=== PATIENT | male | born 1985 | race Caucasian/White ===

== ENCOUNTER 2016-11-01 20:10 | Emergency (ER) | payer SELFPAY ==
[2016-11-01 20:31] VITALS: BP 121/75; PULSE 99; RESP 20; TEMP 98.1; O2SAT 95
[2016-11-01] MEDS ORDERED: Bacitracin 500 Units/gm Oint Foilpak UD TOP ONE (20:34)
[2016-11-01] MEDS ORDERED: Lidocaine 1% Inj (20ml) INFIL ONE (20:35)
[2016-11-01] MEDS ORDERED: Bacitracin 500 Units/gm Oint Foilpak UD ONE (20:44)
[2016-11-01] MEDS ORDERED: Lidocaine 1% Inj (20ml) ONE (20:45)
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
== END 2016-11-01 21:12 | disposition home or self-care (01) ==
LOC: C.ER 20:10
DX: S61.210A Laceration without foreign body of right index finger without damage to nail, initial encounter (principal); S61.411A Laceration without foreign body of right hand, initial encounter; V23.4XXA Motorcycle driver injured in collision with car, pick-up truck or van in traffic accident, initial encounter; Y92.488 Other paved roadways as the place of occurrence of the external cause; Z23 Encounter for immunization